=== PATIENT | male | born 1950 | race Caucasian/White ===

== ENCOUNTER 2017-01-23 06:06 | Day surgery (SDC) | payer MEDICARE, OTHER ==
--- NOTE | 2017-01-17 07:29 | HP ---
HISTORY OF PRESENT ILLNESS: The patient is a 66-year-old right-handed male with a greater than 1 ye ar history of pain and triggering in both middle fingers, right symptomatic more than left. He has had no injury, but he does play tennis regularly. He did obtain temporary relief from a previous in jection almost 1 year ago, but has developed recurrent symptoms despite rest, restriction of activi ties, and anti-inflammatory medications. PAST MEDICAL HISTORY: The patient is otherwise in good health. CURRENT MEDICATIONS: He normally takes no routine medications. PAST SURGICAL HISTORY: He has had previous total knee replacement and previous lumbar decompression for spinal stenosis. ALLERGIES: He is allergic to MORPHINE. FAMILY HISTORY/SOCIAL HISTORY/REVIEW OF SYSTEMS: Otherwise unremarkable. The patient is currently retired. PHYSICAL EXAMINATION: GENERAL: Reveals a healthy male. HEENT: Unremarkable. NECK: Supple. CHEST: Clear. HEART: Regular rate and rhythm. ABDOMEN: Soft, nontender. RECTAL/GENITAL: Deferred. EXTREMITIES: Pertinent findings related to both hands. There is prominence and tenderness over the A1 rebecca of both middle fingers. There is tenderness over the flexor tendon sheath. There was tr iggering with range of motion, there is full range of motion. Neurovascular exam is intact. IMPRESSION: Bilateral middle trigger fingers. PLAN: Bilateral middle finger trigger finger release. The nature of the surgery, length of recover y, and potential complications such as infection, loss of motion, digital nerve injury, recurrence, and need for additional or repeat surgery have been discussed in detail.
[2017-01-22 12:04] VITALS: BMI 33.0
[2017-01-23] MEDS ORDERED: Lidocaine 1% (PF) 30 ML VIAL ONE (06:41)
[2017-01-23] MEDS ORDERED: Bupivacaine PF 0.5% 30 ML VIAL ONE (06:41)
[2017-01-23] MEDS ORDERED: Fentanyl 100 MCG/2 ML VIAL ONE (07:33)
[2017-01-23] MEDS ORDERED: Midazolam HCl 2 mg/2 ml Vial ONE (07:33)
[2017-01-23] MEDS ORDERED: Ondansetron HCl/PF 4 MG/2 ML Vial ONE (07:52)
[2017-01-23] MEDS ORDERED: Propofol 200 MG/20 ML VIAL ONE (07:52)
--- NOTE | 2017-01-23 10:22 | OP ---
DATE OF PROCEDURE: 01/23/2017 SURGEON: Arben Cannon M.D. ANESTHESIA: Local plus TIVA. PREOPERATIVE DIAGNOSIS: Bilateral middle trigger fingers. POSTOPERATIVE DIAGNOSIS: Bilateral middle trigger fingers. PROCEDURE: Bilateral middle trigger finger release. NARRATIVE REPORT: After satisfactory anesthesia was induced in supine position, the patient was pre pped and draped in the routine manner. The left side was addressed first. Metacarpal block was acc omplished with 1% lidocaine, 10 mL. The hand was elevated, exsanguinated with an Esmarch bandage, a nd the tourniquet inflated to 250 mmHg. A 1.5 cm transverse incision was made in the palm over the A1 rebecca of the middle finger, carried down through subcutaneous tissues. Bleeding points controll ed with a cautery. Using sharp and blunt dissection, the A1 rebecca was identified and the neurovasc ular bundles were retracted and protected. The rebecca was then divided with sharp dissection and a segment of the rebecca excised. The tendons could be pulled up into the wound and there was full ran ge of motion, no triggering. The patient was then asked to actively flex and extend his fingers sumi t he could do so without any further triggering. The wound was then irrigated and closed with inter rupted 3-0 nylon. A sterile bulky compressive dressing was applied and the tourniquet deflated afte r 12 minutes. Attention was then directed to the right side and an identical procedure was performe d on the right. Tourniquet time on the right was 15 minutes. The patient was then awakened and nito en to recovery room in stable condition. There were no apparent intraoperative complications. The estimated blood loss was negligible. The patient will be discharged home in satisfactory condition. He was instructed on ice, elevation, and given written wound care instructions. He was given a prescription for Metz 7.5 for pain, 40 tablets. He will be checked in my office in 10-14 days or sooner if there are any problems prior to that time.
--- NOTE | 2017-01-23 14:46 | EKG ---
Test Reason : Blood Pressure : / mmHG Vent. Rate : 071 BPM Atrial Rate : 071 BPM P-R Int : 168 ms QRS Dur : 088 ms QT Int : 404 ms P-R-T Axes : 017 011 -16 degrees QTc Int : 439 ms Normal sinus rhythm T wave abnormality, consider inferior ischemia Abnormal ECG No previous ECGs available Confirmed by ILANA FREY ([id number]) on 01/23/2017 2:46:32 PM Referred By: DIEGO Confirmed By:ILANA FREY
== END 2017-01-23 09:45 | disposition home or self-care (01) ==
LOC: SDC 06:06
PROVIDERS: ATTEND Orthopaedic Surgery
PROC: 0LN80ZZ Release Left Hand Tendon, Open Approach (ICD-10-PCS; principal; 2017-01-23)
PROC: 0LN70ZZ Release Right Hand Tendon, Open Approach (ICD-10-PCS; 2017-01-23)
DX: M65.331 Trigger finger, right middle finger (principal); M65.332 Trigger finger, left middle finger; G47.30 Sleep apnea, unspecified; E78.5 Hyperlipidemia, unspecified; Z88.5 Allergy status to narcotic agent; Z96.651 Presence of right artificial knee joint; Z90.89 Acquired absence of other organs; Z90.49 Acquired absence of other specified parts of digestive tract; Z98.890 Other specified postprocedural states
CPT/HCPCS: 93005; 93010; J2001; J2250; J2405; J2704; J3010; S0020